=== PATIENT | female | born 1960 | race Caucasian/White ===

== ENCOUNTER 2017-01-04 16:30 | Emergency (ER) | payer BC, MEDICAID ==
[2017-01-04] MEDS ORDERED: Sodium Chloride 0.9% 10 ML Syringe FLUSH PRN (17:13)
--- NOTE | 2017-01-04 17:32 | EDM.PDOC ---
ED HPI GENERAL MEDICAL PROBLEM - General Chief Complaint: Neurological Problem Stated Complaint: Weakness Time Seen by Provider: 01/04/17 17:05 Source of Information: Reports: Patient, RN Notes Reviewed History Limitations: Reports: No Limitations - History of Present Illness INITIAL COMMENTS - FREE TEXT/NARRATIVE: 56 year old female presents to the ED with complaints of weakness to her lower extremities, to the point that she's having trouble walking. She also fell today and landed on her knees. She has a history of polymyositis and receives infusions once a month at [facility] in [place]. She sees Yarder Dr. Daily at [facility]. She reports a headache that started around noon and has been noticing that her speech is slurred. She feels nauseated. No vomiting. Denies fever, chills, stiff neck, neck pain, chest pain, shortness of breath, cough, abdominal pain. She has chronic diarrhea. She has a history of hypertension and does occasionally forget to take her blood pressure medication. Her PCP is Dr. Lagunas at [facility]. Bilateral Leg Pain Score (Numeric/FACES): 2 Headache Pain Score (Numeric/FACES): 5 - Related Data Allergies Allergy/AdvReac Type Severity Reaction Status Date / Time grape Allergy Rash Verified 02/25/16 09:59 peanut Allergy Blisters Verified 02/25/16 09:59 Home Meds: Home Meds Clotrimazole/Betamethasone Dip [Lotrisone Cream] 1 applic TP BID PRN 02/25/16 [ History] Folic Acid 1 mg PO DAILY 02/25/16 [History] Hydrochlorothiazide 25 mg PO DAILY 02/25/16 [History] Metoprolol Tartrate [Lopressor] 100 mg PO DAILY 02/25/16 [History] Potassium Chloride [Klor-Con M20] 1 tab PO ASDIRECTED 02/25/16 [History] predniSONE [Prednisone] 15 mg PO DAILY 02/25/16 [History] Past Medical History Cardiovascular History: Reports: Hypertension Musculoskeletal History: Reports: Other (See Below) Other Musculoskeletal History: Polymyositis - Past Surgical History HEENT Surgical History: Reports: Tonsillectomy GI Surgical History: Reports: Appendectomy, Cholecystectomy Female Surgical History: Reports: Hysterectomy, Tubal Ligation Social & Family History - Tobacco Use Smoking Status *Q: Current Every Day Smoker Years of Tobacco use: 30 Packs/Tins Daily: 1 - Caffeine Use Caffeine Use: Reports: Soda - Recreational Drug Use Recreational Drug Use: No ED ROS GENERAL - Review of Systems Review Of Systems: See Below Constitutional: Reports: No Symptoms. Denies: Fever, Chills HEENT: Reports: No Symptoms. Denies: Vision Change Respiratory: Reports: No Symptoms. Denies: Shortness of Breath, Cough Cardiovascular: Reports: No Symptoms. Denies: Chest Pain GI/Abdominal: Reports: Diarrhea, Nausea. Denies: Abdominal Pain, Vomiting Musculoskeletal: Reports: Other (weakness ) Neurological: Reports: Headache, Numbness, Tingling, Difficulty Walking, Weakness. Denies: Confusion, Dizziness, Seizure, Syncope ED EXAM, NEURO - Physical Exam Exam: See Below Exam Limited By: No Limitations General Appearance: Alert, WD/WN, No Apparent Distress Eye Exam: Bilateral Eye: EOMI, PERRL Throat/Mouth: Normal Inspection, Normal Oropharynx, Other (dry mucous membranes ) Neck: Normal Inspection, Supple, Non-Tender, Full Range of Motion, Other (no nuchal rigidity ). No: Tender Lateral, Tender Midline Respiratory/Chest: No Respiratory Distress, Lungs Clear, Normal Breath Sounds Cardiovascular: Normal Peripheral Pulses, Regular Rate, Rhythm, No Edema, No Murmur, Other (hypertensive ) GI/Abdominal: Normal Bowel Sounds, Soft, Non-Tender Neurological: Alert, Oriented x 3, Abnormal Motor (Upper extremity strength is equal bilaterally. She has weakness with dorsiflexion of the left leg. She is able to perform heal to saldana movements bilaterally with no problems. Some difficulty with finger to nose with the left hand. She has subtle slurred speech. No facial droop. No tongue deviation. Face is symmetrical. ), Difficulty Walking (requires assistance with transfers ) Skin Exam: Warm, Dry, Intact Course - Vital Signs Last Recorded V/S: Last Vital Signs Temp 97.3 F 01/04/17 16:41 Pulse 46 L 01/04/17 18:32 Resp 16 01/04/17 18:32 BP 191/84 H 01/04/17 18:32 Pulse Ox 97 01/04/17 18:32 - Orders/Labs/Meds Orders: Active Orders 24 hr Category Date Time Status Peripheral IV Care [RC] . DIRECTED Care 01/04/17 17:15 Active Peripheral IV Insertion Adult [OM.PC] Stat Oth 01/04/17 17:15 Ordered Labs: Laboratory Tests 01/04/17 01/04/17 01/04/17 Range/Units 17:25 17:25 17:25 WBC 8.58 (3.98-10.04) K/mm3 RBC 4.80 (3.98-5.22) M/mm3 Hgb 15.0 (11.2-15.7) gm/L Hct 44.2 (34.1-44.9) % MCV 92.1 (79.4-94.8) fl MCH 31.3 (25.6-32.2) pg MCHC 33.9 (32.2-35.5) g/dl RDW Std Deviation 47.2 H (36.4-46.3) fL Plt Count 240 (182-369) K/mm3 MPV 10.3 (9.4-12.3) fl Neut % (Auto) 62.0 (34.0-71.1) % Lymph % (Auto) 21.8 (19.3-51.7) % [place] % (Auto) 11.2 (4.7-12.5) % Eos % (Auto) 4.1 (0.7-5.8) Baso % (Auto) 0.6 (0.1-1.2) % Neut # (Auto) 5.32 (1.56-6.13) K/mm3 Lymph # (Auto) 1.87 (1.18-3.74) K/mm3 [place] # (Auto) 0.96 H (0.24-0.36) K/mm3 Eos # (Auto) 0.35 (0.04-0.36) K/mm3 Baso # (Auto) 0.05 (0.01-0.08) K/mm3 Sodium 139 (136-145) mEq/L Potassium 3.6 (3.5-5.1) mEq/L Chloride 102 (98-107) mEq/L Carbon Dioxide 30 (21-32) mEq/L Anion Gap 10.6 (5-15) BUN 8 (7-18) mg/dL Creatinine 0.7 (0.55-1.02) mg/dL Est Cr Clr Drug Dosing 82.24 mL/min Estimated GFR (MDRD) > 60 (>60) mL/min BUN/Creatinine Ratio 11.4 L (14-18) Glucose 104 (74-106) mg/dL Calcium 9.0 (8.5-10.1) mg/dL Total Bilirubin 0.4 (0.2-1.0) mg/dL AST 24 (15-37) U/L ALT 33 (14-59) U/L Alkaline Phosphatase 37 L (46-116) U/L Creatine Kinase 159 (26-192) U/L Total Protein 7.9 (6.4-8.2) g/dl Albumin 3.5 (3.4-5.0) g/dl Globulin 4.4 gm/dL Albumin/Globulin Ratio 0.8 L (1-2) Meds: Medications Discontinued Medications Generic Name Dose Route Start Last Admin Trade Name Freq PRN Reason Stop Dose Admin Acetaminophen 975 mg 01/04/17 18:40 01/04/17 18:59 Tylenol PO 01/04/17 18:41 975 mg NOW ONE Administration Methylprednisolone Sodium Succinate 125 mg 01/04/17 18:40 01/04/17 19:02 Solu-Medrol IVPUSH 01/04/17 18:41 125 mg ONETIME ONE Administration Sodium Chloride 10 ml 01/04/17 17:13 01/04/17 17:25 Saline Flush FLUSH 10 ml ASDIRECTED PRN Administration Keep Vein Open - Re-Assessments/Exams Free Text/Narrative Re-Assessment/Exam: CBC and CMP are normal. Head CT read by Dr. Amezquita, impression: old lacunar infarct is noted within the left cerebellar hemisphere. No acute intracranial abnormality. History is somewhat difficult to sort out. The patient is a poor historian. After talking with the family, they report that the patient's weakness has been present since her diagnosis of polymyositis over 2 years ago. They report that she is always unsteady and ambulates with a guarded gait. I had the patient ambulate and she was able to ambulate to the bathroom with minimal assistance. The family also watched her and said this is her typical gait. Additional cerebellar testing is normal. The patient has slurred speech that will intermittently become completely clear. She has no facial droop. She reports a headache and was given Tylenol. Discussed history and exam with Dr. Larsen. Dr. Larsen recommends treating her with steroids. She is on prednisone chronically so he recommends increasing this. We also discussed the patient's hypertension, bradycardia, and current medications. Dr. Larsen recommends that we do not treat her hypertension because of her bradycardia in the 40s. Will give patient a dose of Solu-medrol 125mg IV x1 now. Her PCP is Dr. Lagunas. The says that Dr. Lagunas's office is very good about working them in as needed. They will call the clinic right away in the morning. They were instructed to return to ED if they are unable to see Dr. Lagunas or if symptoms worsen in any way. Departure - Departure Time of Disposition: 19:08 Disposition: Home, Self-Care 01 Condition: Good Clinical Impression: Generalized weakness, Polymyositis Hypertension Qualifiers: Hypertension type: other secondary hypertension Qualified Code(s): I15.8 - Other secondary hypertension - Discharge Information Instructions: Hypertension, [id number], Polymyositis Referrals: Lauren Bhandari MD [Primary Care Provider] - Forms: ED Department Discharge Additional Instructions: Follow-up with Dr. Lagunas tomorrow Return to ER with any new or worsening symptoms I also recommend that you update your Yarder tomorrow as well. Tylenol 650mg every 4-6 hours as needed for pain - My Orders Last 24 Hours: My Active Orders 01/04/17 17:15 Peripheral IV Care [RC] . DIRECTED Peripheral IV Insertion Adult [OM.PC] Stat - Assessment/Plan Last 24 Hours: My Active Orders 01/04/17 17:15 Peripheral IV Care [RC] . DIRECTED Peripheral IV Insertion Adult [OM.PC] Stat
--- NOTE | 2017-01-04 17:52 | CT ---
Head CT Technique: Multiple axial sections through the brain were obtained. Intravenous contrast was not utilized. Comparison: No previous intracranial imaging. Findings: Ventricles along with basal cisterns and sulci over the convexities are within normal limits for the patient's age. [place] small low-density lesion is seen within the left cerebellar hemisphere most likely due to old lacunar infarct. No other abnormal parenchymal densities are appreciated. No evidence of intracranial hemorrhage. No midline shift or mass effect is seen. Bone window settings were reviewed which shows no acute calvarial abnormality. Visualized sinuses are clear. Impression: 1. Old lacunar infarct is noted within the left cerebellar hemisphere. 2. No acute intracranial abnormality is identified on noncontrast head CT study. Diagnostic code #2
[2017-01-04 18:33] VITALS: BP 191/84
[2017-01-04] MEDS ORDERED: Acetaminophen 325 MG Tab PO ONE (18:40)
[2017-01-04] MEDS ORDERED: methylPREDNISolone Sodium Succinate 125 MG/2 ML SDV IVPUSH ONE (18:40)
== END 2017-01-04 19:50 | disposition home or self-care (01) ==
LOC: JD.ED 16:30
DX: R53.1 Weakness (principal); M33.20 Polymyositis, organ involvement unspecified; R51 Headache; R11.0 Nausea; I15.8 Other secondary hypertension; F17.200 Nicotine dependence, unspecified, uncomplicated; Z91.010 Allergy to peanuts; Z91.018 Allergy to other foods; Z79.52 Long term (current) use of systemic steroids; Z79.899 Other long term (current) drug therapy; W19.XXXA Unspecified fall, initial encounter
CPT/HCPCS: 36415; 70450; 80053; 82550; 85025; 96374; 99284; A9270; J2930; J7050; 99283

== ENCOUNTER 2018-08-20 08:24 | Emergency (ER) | payer BC ==
--- NOTE | 2018-08-20 08:42 | EDM.PDOC ---
ED HPI GENERAL MEDICAL PROBLEM - General Chief Complaint: Neurological Problem Stated Complaint: STROKE SYMPTOMS Time Seen by Provider: 08/20/18 08:37 Source of Information: Reports: Patient, Family (spouse) History Limitations: Reports: No Limitations - History of Present Illness INITIAL COMMENTS - FREE TEXT/NARRATIVE: 57-year-old female presents to the ED for evaluation of feeling off balance when she tries to walk for the last 2-3 days. She believes symptoms started on Thursday when she woke up. Associated headache. She does finds that every once while she's taking extra step and is off balance. Her reports that her finger to nose or either hand coordination is impaired. Permitted speech. She denies falling. She states she's been hanging onto objects to walk. No true evidence of vertigo symptoms. No falls or recent closed head injuries. Patient does not take any anticoagulants or blood thinners. She had 6 teeth removed from her right lower mandible day before yesterday otherwise she's not been on any new medications. Onset: Sudden Onset Date: 08/17/18 (Awoken symptoms on Thursday) Duration: Day(s):, Getting Worse Location: Reports: Other (Finding at her balance is off with some ataxia particularly of her right upper extremity) Quality: Reports: Other (Abnormal movements eye hand coordination) Severity: Moderate (problems) Improves with: Reports: None Worsens with: Reports: Movement Context: Denies: Activity, Exercise (Worse with certain movements and activities ), Sick Contact, Trauma, Other Associated Symptoms: Reports: Cough, cough w sputum, Loss of Appetite, Weakness. Denies: No Other Symptoms, Confusion, Chest Pain, Diaphoresis, Fever/ Chills, Headaches, Malaise, Nausea/Vomiting, Rash (Decreased appetite has to take a soft diet after having 6 teeth removed.), Seizure, Shortness of Breath, Syncope - Related Data Allergies Allergy/AdvReac Type Severity Reaction Status Date / Time grape Allergy Rash Verified 08/20/18 09:00 peanut Allergy Blisters Verified 08/20/18 09:00 Penicillins Allergy Rash Verified 08/20/18 09:01 Home Meds: Home Meds Folic Acid 1 mg PO DAILY 02/25/16 [History] Hydrochlorothiazide 25 mg PO DAILY 02/25/16 [History] Potassium Chloride [Klor-Con M20] 1 tab PO ASDIRECTED 02/25/16 [History] predniSONE [Prednisone] 5 mg PO DAILY 02/25/16 [History] Aspirin [Ecotrin] 81 mg PO DAILY 08/20/18 [History] Clopidogrel [Plavix] 75 mg PO DAILY #30 tablet 08/20/18 [Rx] Lisinopril [Zestril] 40 mg PO DAILY 08/20/18 [History] Methotrexate 2.5 mg PO WEEKLY 08/20/18 [History] amLODIPine [Norvasc] 5 mg PO DAILY 08/20/18 [History] atorvaSTATin [Lipitor] 40 mg PO DAILY 08/20/18 [History] Past Medical History Cardiovascular History: Reports: Hypertension Musculoskeletal History: Reports: Other (See Below) Other Musculoskeletal History: Polymyositis - Past Surgical History HEENT Surgical History: Reports: Tonsillectomy GI Surgical History: Reports: Appendectomy, Cholecystectomy Female Surgical History: Reports: Hysterectomy, Tubal Ligation Social & Family History - Caffeine Use Caffeine Use: Reports: Soda - Living Situation & Occupation Living situation: Reports: (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 Denies: Fever, Chills, Malaise, Fatigue, Weight Loss HEENT: Reports: No Symptoms Respiratory: Reports: Cough, Sputum Cardiovascular: Reports: Blood Pressure Problem. Denies: Chest Pain, Claudication, Dyspnea on Exertion, Edema, Lightheadedness, Orthopnea Endocrine: Reports: Fatigue GI/Abdominal: Reports: No Symptoms : Reports: No Symptoms Musculoskeletal: Reports: No Symptoms Skin: Reports: Dryness Neurological: Reports: Dizziness, Difficulty Walking, Gait Disturbance. Denies : Confusion, Headache, Numbness, Paresthesia, Pre-Existing Deficit, Seizure, Syncope, Tingling, Tremors, Trouble Speaking, Weakness (Off balance at times.), Change in Speech, Other Psychiatric: Reports: No Symptoms Hematologic/Lymphatic: Reports: No Symptoms Immunologic: Reports: No Symptoms ED EXAM, NEURO - Physical Exam Exam: See Below Exam Limited By: No Limitations General Appearance: Alert, WD/WN, No Apparent Distress Eye Exam: Bilateral Eye: Normal Inspection (No nystagmus), PERRL Ears: Normal External Exam Nose: Normal Inspection Throat/Mouth: Normal Inspection, Normal Lips, Normal Voice, Other (Uvula pulls towards the right side. Recent of multiple dental surgeries with dental extractions from her right lower mandible). No: Normal Teeth Head Exam: Atraumatic, Normocephalic Neck: Normal Inspection, Supple, Non-Tender, Full Range of Motion. No: Lymphadenopathy (L), Lymphadenopathy (R) Respiratory/Chest: No Respiratory Distress, Lungs Clear, No Accessory Muscle Use , Rhonchi (Few rhonchi upper anterior chest x-ray with coughing) Cardiovascular: Normal Peripheral Pulses, Regular Rate, Rhythm, No Edema, No Gallop, No Murmur, No Rub GI/Abdominal: Normal Bowel Sounds, Soft, Non-Tender, No Organomegaly, No Abnormal Bruit, No Mass, Pelvis Stable Neurological: Alert, Normal Mood/Affect, Normal Dorsiflexion, CN II-XII Intact, Normal Plantar Flexion, Normal Reflexes, No Motor/Sensory Deficits, Oriented x 3 , Abnormal Finger to Nose (She has mild ataxia and right-sided finger to nose assessment.), Other ( Visible on heel to saldana. pronator drift. ). No: Normal Gait DTR: 2+: Bicep (R), Bicep (L), Patella (R), Patella (L) Back Exam: Normal Inspection, Full Range of Motion Extremities: Normal Inspection, Normal Range of Motion, Non-Tender, No Pedal Edema Psychiatric: Normal Affect, Normal Mood Skin Exam: Warm, Dry, Intact, Normal Color, No Rash EKG INTERPRETATION EKG Date: 08/20/18 Time: 08:51 Rhythm: Other Rate (Beats/Min): 56 [place]: Normal P-Wave: Present QRS: Other (Nonspecific intraventricular conduction delay left ventricular hypertrophy pattern.) ST-T: Normal QT: Normal EKG Interpretation Comments: Abnormal ECG Course - Vital Signs Last Recorded V/S: Last Vital Signs Temp 36.9 C 08/20/18 08:33 Pulse 58 L 08/20/18 08:33 Resp 13 08/20/18 08:33 BP 185/84 H 08/20/18 08:33 Pulse Ox 100 08/20/18 08:33 - Orders/Labs/Meds Orders: Active Orders 24 hr Category Date Time Status EKG Documentation Completion [RC] STAT Care 08/20/18 08:39 Active Sodium Chloride 0.9% [Normal Saline] 1,000 ml Med 08/20/18 08:45 Active IV ASDIRECTED Sodium Chloride 0.9% [Saline Flush] Med 08/20/18 10:30 Active 10 ml FLUSH ASDIRECTED Medication Orders Sodium Chloride (Normal Saline) 1,000 mls @ 100 mls/hr IV ASDIRECTED ROSIBEL Last Admin: 08/20/18 09:06 Dose: 100 mls/hr Sodium Chloride (Saline Flush) 10 ml FLUSH ASDIRECTED ROSIBEL Last Admin: 08/20/18 10:50 Dose: 10 ml Labs: Laboratory Tests 08/20/18 08/20/18 08/20/18 Range/Units 08:30 08:55 08:55 WBC 4.85 (3.98-10.04) K/mm3 RBC 4.47 (3.98-5.22) M/mm3 Hgb 14.5 (11.2-15.7) gm/L Hct 41.8 (34.1-44.9) % MCV 93.5 (79.4-94.8) fl MCH 32.4 H (25.6-32.2) pg MCHC 34.7 (32.2-35.5) g/dl RDW Std Deviation 50.4 H (36.4-46.3) fL Plt Count 259 (182-369) K/mm3 MPV 9.7 (9.4-12.3) fl Neutrophils % (Manual) 34 L (40-60) % Band Neutrophils % 0 (0-10) % Lymphocytes % (Manual) 38 (20-40) % Atypical Lymphs % 6 % Monocytes % (Manual) 12 H (2-10) % Eosinophils % (Manual) 10 H (0.7-5.8) % Basophils % (Manual) 0 L (0.1-1.2) Platelet Estimate Adequate Plt Morphology Comment See note RBC Morph Comment Normal PT 10.6 (9.5-12.1) SECONDS INR 0.97 APTT (24-31) SECONDS Sodium (136-145) mEq/L Potassium (3.5-5.1) mEq/L Chloride (98-107) mEq/L Carbon Dioxide (21-32) mEq/L Anion Gap (5-15) BUN (7-18) mg/dL Creatinine (0.55-1.02) mg/dL Est Cr Clr Drug Dosing mL/min Estimated GFR (MDRD) (>60) mL/min BUN/Creatinine Ratio (14-18) Glucose (74-106) mg/dL POC Glucose 86 (70-105) mg/dL Calcium (8.5-10.1) mg/dL Magnesium (1.8-2.4) mg/dl Total Bilirubin (0.2-1.0) mg/dL AST (15-37) U/L ALT (14-59) U/L Alkaline Phosphatase (46-116) U/L Total Protein (6.4-8.2) g/dl Albumin (3.4-5.0) g/dl Globulin gm/dL Albumin/Globulin Ratio (1-2) 08/20/18 08/20/18 Range/Units 08:55 08:55 WBC (3.98-10.04) K/mm3 RBC (3.98-5.22) M/mm3 Hgb (11.2-15.7) gm/L Hct (34.1-44.9) % MCV (79.4-94.8) fl MCH (25.6-32.2) pg MCHC (32.2-35.5) g/dl RDW Std Deviation (36.4-46.3) fL Plt Count (182-369) K/mm3 MPV (9.4-12.3) fl Neutrophils % (Manual) (40-60) % Band Neutrophils % (0-10) % Lymphocytes % (Manual) (20-40) % Atypical Lymphs % % Monocytes % (Manual) (2-10) % Eosinophils % (Manual) (0.7-5.8) % Basophils % (Manual) (0.1-1.2) Platelet Estimate Plt Morphology Comment RBC Morph Comment PT (9.5-12.1) SECONDS INR APTT 30 (24-31) SECONDS Sodium 141 (136-145) mEq/L Potassium 3.3 L (3.5-5.1) mEq/L Chloride 105 (98-107) mEq/L Carbon Dioxide 29 (21-32) mEq/L Anion Gap 10.3 (5-15) BUN 9 (7-18) mg/dL Creatinine 0.5 L (0.55-1.02) mg/dL Est Cr Clr Drug Dosing 116.52 mL/min Estimated GFR (MDRD) > 60 (>60) mL/min BUN/Creatinine Ratio 18.0 (14-18) Glucose 86 (74-106) mg/dL POC Glucose (70-105) mg/dL Calcium 9.6 (8.5-10.1) mg/dL Magnesium 1.7 L (1.8-2.4) mg/dl Total Bilirubin 0.6 (0.2-1.0) mg/dL AST 27 (15-37) U/L ALT 33 (14-59) U/L Alkaline Phosphatase 53 (46-116) U/L Total Protein 7.9 (6.4-8.2) g/dl Albumin 3.5 (3.4-5.0) g/dl Globulin 4.4 gm/dL Albumin/Globulin Ratio 0.8 L (1-2) Meds: Medications Generic Name Dose Route Start Last Admin Trade Name Freq PRN Reason Stop Dose Admin Sodium Chloride 1,000 mls @ 100 mls/hr 08/20/18 08:45 08/20/18 09:06 Normal Saline IV 100 mls/hr ASDIRECTED ROSIBEL Administration Sodium Chloride 10 ml 08/20/18 10:30 08/20/18 10:50 Saline Flush FLUSH 10 ml ASDIRECTED ROSIBEL Administration Discontinued Medications Generic Name Dose Route Start Last Admin Trade Name Freq PRN Reason Stop Dose Admin Gadobenate Dimeglumine 12 ml 08/20/18 10:29 08/20/18 10:50 Multihance IVPUSH 08/20/18 10:30 12 ml ONETIME ONE Administration - Radiology Interpretation Free Text/Narrative:: 57-year-old female presents the ED for evaluation of loss of balance or incoordination over the last 3-4 days. She believes she woke up with symptoms on August 17. Symptoms seem to be getting a bit worse. He relates that her eye hand coordination is not ri Patient reports that she is staggering a bit and seems to be offkilter at times. She has not fallen. Likely the only finding I can identify is abnormal finger to nose assessment with mild ataxia on the right side. Patient has never been a heavy alcohol user. Is no nystagmus. Questionable cerebellar infarct. Patient will go to CT first. Routine labs and plan will be for an MRI with diffusion weighted imaging. - Re-Assessments/Exams Free Text/Narrative Re-Assessment/Exam: 08/20/18 09:15: Chest x-ray done portably shows mild scoliosis lungs are clear with no acute parenchymal change in heart size is normal. CT of the brain reveals the ventricles along the basal cisterns and saw side over the convex duties are within normal limits for the patient's age. Low density finding is noted within the left parietal convexity within the midline this finding appears to be old but as an interval change from previous exam. There is also a low-density area within the white matter within the left centrum semi-ovale likely due to an old white matter infarct. Old lacunar infarct is noted within the left cerebellar hemisphere which is stable as well. No other abnormal parenchymal densities are seen no evidence of intracranial hemorrhage is identified no midline shift or mass effect is seen. Mentation by the radiologist is for MRI of the brain with and without contrast. This will be arranged 08/20/18 10:18 Labs reveal a normal white count at 4.85 with 34% neutrophils no bands and 38% lymphocytes. 6% atypical lymphocytes 12% monocytes and 10% eosinophils both of these are abnormal. Hemoglobin is 14.5 with a hematocrit of 41.8. Platelet count is 259,000. PT is 10.6 with an INR of 0.97 PTT is 30. Sodium 141 with potassium slightly low at 3.3. Toward 105 with a bicarbonate of 29. Anion gap is 10.3 with a BUN of 9. Creatinine is 0.5. GFR is greater than 60. Glucose is 86. Calcium is 9.6. Magnesium slightly low at 1.7. Total bilirubin 0.6. AST is 27 with an ALT of 33. Alk phosphatase 53. Total protein is 7.9 albumin fraction 3.5 08/20/18 11:41 MRI of the brain has been completed. Undergoes along the basal cisterns and sulci over the convexities are within normal limits for the patient 's age old infarct is noted within the left cerebellar hemisphere. Scattered areas of increased signal are noted within the periventricular subcortical white matter compatible with small vessel ischemic demyelination changes. Acute diffusion abnormality is noted within the centrum semiovale ovale on the left side compared with relatively acute white matter infarct. No other diffusion abnormalities are seen. Abnormality is noted within the posterior left parietal region within the midline compatible with an old infarct. Normal signal void is seen within the major cerebral arteries within the skull base. Findings discussed with the patient. She needs to get into neurology services and I'm going to suggest neurology clinic in [place]. I will have Dr. Hager set this up for the patient and have the patient set up an appointment to see Dr. Lagunas next week. Meantime I'm going to place her on dipyridamole twice daily until follow-up is completed. Departure - Departure Time of Disposition: 11:52 Disposition: Home, Self-Care 01 Condition: Fair Clinical Impression: Recurrent strokes - Discharge Information *PRESCRIPTION DRUG MONITORING PROGRAM REVIEWED*: Not Applicable *COPY OF PRESCRIPTION DRUG MONITORING REPORT IN PATIENT KORY: Not Applicable Prescriptions: Clopidogrel [Plavix] 75 mg PO DAILY #30 tablet Referrals: Lauren Bhandari MD [Primary Care Provider] - Forms: ED Department Discharge Additional Instructions: Evaluation the emergency room today in regards to increased weakness mostly on the right side particularly appreciated in the right hand on finger to nose assessment with balance with walking. MRI of the brain reveals that there is a new stroke involving the central part of the brain on the left side. There is evidence of 3 old strokes in the left side of the brain as well. Therefore going to place you on Plavix 75 mg a day which is a blood thinner to prevent any clots from occurring to cause stroke however some strokes or caused by plaque from atherosclerosis or hardening of the arteries. Further investigation is required by a stroke neurologist. We need to see why you keep on having small strokes on the left side and try and prevent a major stroke from occurring. Continue to stop your current baby aspirin daily and replace it with Plavix 75 mg once daily. Please follow-up with Dr. Lagunas in the clinic next week with a view to having her set up appointment with stroke neurology services in [place] or [place] further investigations. Ideally you need an MRA of the brain and repeat carotid ultrasounds and echocardiogram done. This is sometimes best done as an inpatient in hospital where services can almost always be done all within 1 day. - My Orders Last 24 Hours: My Active Orders 08/20/18 08:39 EKG Documentation Completion [RC] STAT 08/20/18 08:45 Sodium Chloride 0.9% [Normal Saline] 1,000 ml IV ASDIRECTED 08/20/18 10:30 Sodium Chloride 0.9% [Saline Flush] 10 ml FLUSH ASDIRECTED - Assessment/Plan Last 24 Hours: My Active Orders 08/20/18 08:39 EKG Documentation Completion [RC] STAT 08/20/18 08:45 Sodium Chloride 0.9% [Normal Saline] 1,000 ml IV ASDIRECTED 08/20/18 10:30 Sodium Chloride 0.9% [Saline Flush] 10 ml FLUSH ASDIRECTED
[2018-08-20] MEDS ORDERED: Sodium Chloride 0.9% 1,000 ML IV SCH (08:45)
[2018-08-20 08:49] VITALS: BP 185/84
--- NOTE | 2018-08-20 09:00 | CT ---
Head CT Technique: Multiple axial sections through the brain were obtained. Intravenous contrast was not utilized. Comparison: Prior head CT exam of 12/28/16. Findings: Ventricles along with basal cisterns and sulci over convexities are within normal limits for the patient's age. density finding is noted within the left parietal convexity within the midline. This finding appears to be old but is an interval change from previous exam. There is also a low-density area within the white matter within the left centrum semi-ovale likely due to old white matter infarct. Old lacunar infarct is noted within the left cerebellar hemisphere which is stable. No other abnormal parenchymal densities are seen. No evidence of intracranial hemorrhage. No midline shift or mass effect is seen. Bone window settings were reviewed which shows no acute calvarial abnormality. Visualized sinuses are clear. Impression: 1. Abnormality within the left parietal convexity and within the left centrum semi-ovale most likely representing old infarcts which are an interval change from previous exam. Consider MRI study with contrast to confirm this impression. 2. Stable old infarct within the left cerebellar hemisphere. 3. No additional abnormality is identified on noncontrast head CT study. Diagnostic code #3
--- NOTE | 2018-08-20 09:22 | CR ---
Chest: Portable view of the chest was obtained. Comparison: No previous chest x-ray. Heart size and mediastinum are within normal limits for portable technique. Mild scoliosis is seen. Lungs are clear with no acute parenchymal change. Bony structures are grossly intact. Impression: 1. Nothing acute is seen. Diagnostic code #2
[2018-08-20] MEDS ORDERED: Gadobenate Dimeglumine 529 MG/ML 15 ML SDV IVPUSH ONE (10:29)
[2018-08-20] MEDS ORDERED: Sodium Chloride 0.9% 10 ML Syringe FLUSH SCH (10:30)
--- NOTE | 2018-08-20 11:28 | MR ---
MRI brain (without and with intravenous contrast) Technique: T1 sagittal; T2, T2 FLAIR, T1, gradient echo and diffusion axial; T1 and T2 gradient echo coronal images were obtained. Comparison: Prior head CT study of 08/20/18. Findings: Ventricles along with basal cisterns and sulci over the convexities are within normal limits for the patient's age. Old infarct is noted within the left cerebellar hemisphere. Scattered areas of increased signal are noted within the periventricular subcortical white matter compatible with small vessel ischemic demyelination change. Acute diffusion abnormality is noted within the centrum semi-ovale on the left side compatible with relatively acute white matter infarct. No other diffusion abnormalities are seen. Abnormality is noted within the posterior left parietal region within the midline compatible with old infarct. Normal signal void is seen within the major cerebral arteries within the skull base. Impression: 1. Small area of diffusion abnormality within the left centrum semi-ovale compatible with relatively acute small white matter infarct. 2. Old infarct within the medial and posterior left parietal region as well as small old infarct within the left cerebellum. 3. Small vessel ischemic demyelination change is noted. Diagnostic code #3
== END 2018-08-20 12:39 | disposition home or self-care (01) ==
LOC: JD.ED 08:24
DX: I63.9 Cerebral infarction, unspecified (principal); R40.2410 Glasgow coma scale score 13-15, unspecified time; I10 Essential (primary) hypertension; Z79.899 Other long term (current) drug therapy; Z91.018 Allergy to other foods; Z88.0 Allergy status to penicillin; Z91.010 Allergy to peanuts; Z79.82 Long term (current) use of aspirin
CPT/HCPCS: 36415; 70450; 70553; 71045; 80053; 82962; 83735; 85007; 85027; 85610; 85730; 93005; 96360; 96361; 99285; A9577; J7040; 93010; 99284

== ENCOUNTER 2021-09-18 19:21 | Observation (INO) | payer BC, OTHER ==
[2021-09-18] MEDS ORDERED: Potassium Chloride 20 MEQ Tab.ER PO ONE (21:08)
[2021-09-19] MEDS ORDERED: Carboxymethylcellulose Sodium 1% Ophth Gel 15 ML Bottle EYEBOTH PRN (06:23)
[2021-09-19] MEDS ORDERED: Ondansetron 4 MG/2 ML SDV IV PRN (08:51)
[2021-09-19] MEDS ORDERED: oxyCODONE 5 MG Tab PO PRN (08:51)
[2021-09-19] MEDS ORDERED: Acetaminophen 325 MG Tab PO PRN (08:51)
[2021-09-19 11:41] VITALS: BP 163/70; PULSE 54
== END 2021-09-19 14:40 | disposition home or self-care (01) ==
LOC: SUPCPDRO 19:21 → JD.ED 19:21 → JD.MS 22:09 → JD.ED 23:00
PROVIDERS: ADMIT Pediatrics; ATTEND Pediatrics
DX: G45.9 Transient cerebral ischemic attack, unspecified (principal); F17.210 Nicotine dependence, cigarettes, uncomplicated; E87.6 Hypokalemia; Z88.0 Allergy status to penicillin; Z91.010 Allergy to peanuts; Z91.018 Allergy to other foods; Z79.899 Other long term (current) drug therapy; Z79.82 Long term (current) use of aspirin; Z20.822 Contact with and (suspected) exposure to COVID-19
CPT/HCPCS: 36415; 70450; 70551; 80048; 80053; 82947; 83735; 84484; 85025; 85379; 85610; 85730; 87635; 93005; 97161; 99285; A9270; G0378; U0002